=== PATIENT | male | born 1950 | race African-American/Black ===

== ENCOUNTER → 2016-10-23 | Outpatient (CLI) | payer BC ==
[2016-10-23 08:47] LABS: BUN/CREATININE RATIO 12 (0-10)
== END ==
LOC: LAB 08:07
PROVIDERS: Emergency Medicine
DX: E78.2 Mixed hyperlipidemia (principal); I10 Essential (primary) hypertension; J39.8 Other specified diseases of upper respiratory tract
CPT/HCPCS: 36415; 80053

== ENCOUNTER → 2021-05-18 | Outpatient (CLI) | payer MEDICARE, OTHER ==
[~2021-05-18] MED LIST: AUGMENTIN 875-1 EACH PO; ECOTRIN81 MG PO; NORVASC10 MG PO; PRAVACHOL40 MG PO; PROTONIX40 MG PO; VITAMIN D31000 UNI1 PO
== END ==
LOC: EXRD 13:21
DX: M25.562 Pain in left knee (principal)
CPT/HCPCS: 73562